=== PATIENT | male | born 1970 | race Caucasian/White ===

== ENCOUNTER 2016-07-02 03:38 | Emergency (ER) | payer OTHER ==
[~2016-07-02 03:38] MED LIST: CEFT2ADD IV; DOXY100T PO; HEPARIN LOCK FLUSH IV; PERC5TAB8 OR; saline lock flush IV
--- NOTE | 2016-07-02 04:47 | EDDOCDS ---
Nurse's Notes [facility] Name: Jerel Lainez Age: 46 yrs Sex: Male : 1970 Arrival Date: 07/02/2016 Time: 03:38 Bed I8 / 16 Private MD: Moose Diagnosis: Strain of other muscles, fascia and tendons at shoulder and upper arm level, right arm Presentation: 07/02 03:51 Presenting complaint: Patient states: right shoulder pain, states he injured shoulder nn1 at work. 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 States right shoulder hit fender of brick unloader tender. Injury occurred at approximately 1700. Suicide/Homicide risk assessment- the patient denies having any suicidal and/or homicidal ideations and does not present with any other emotional, behavioral or mental health complaints. 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 Transition of care: patient was not received from another setting of care. 03:51 Acuity: EARLINE Level 4 nn1 03:51 Method Of Arrival: Walkin/Carried/Asstd nn1 04:46 Adult Sepsis Screening: The patient does not have new or worsening altered mentation. af2 Patient's respiratory rate is less than 22. Systolic blood pressure is greater than 100. Patient has a qSOFA score of 0- Negative Sepsis Screen. Triage Assessment: 03:56 General: Appears in no apparent distress, Behavior is appropriate for age, cooperative. nn1 Pain: Location: anterior aspect of right shoulder and posterior aspect of right shoulder Pain currently is 8 out of 10 on a pain scale. HIV screening NA for this visit Offered previously. The patient is triaged at the bedside. See Assessment in Nurses Notes section of ED record. Respiratory: Airway is patent Respiratory effort is even, unlabored, Respiratory pattern is regular, symmetrical. Derm: Skin is pink, warm & dry. Musculoskeletal: cervical spine is non-tender. Circulation, motion, and sensation intact Capillary refill < 3 seconds Range of motion limited in right shoulder No deformity noted Swelling absent. Historical: - Allergies: PENICILLINS; Atropine; - Home Meds: 1. none - PMHx: GERD; - PSHx: Knee surgery- Right; finger surgery; Tonsillectomy; - Social history: Smoking status: Patient states was never smoker of tobacco. No barriers to communication noted, The patient speaks fluent Tuvaluan, Speaks appropriately for age. - Family history: Not pertinent. - : The pt / caregiver states he / she is not on anticoagulants. Home medication list is obtained from the patient. - Exposure Risk Screening:: None identified. Screenin:57 Screening information is obtained from the patient. Fall risk: No risks identified. nn1 Assistance ADL's: requires no assistance with activities of daily living. Abuse/DV Screen: The patient / caregiver reports he/she is: not in a situation that causes fear, pain or injury. Nutritional screening: No deficits noted. Advance Directives: Currently, there is a health care proxy, ismael Thayer, . home support is adequate. Assessment: 04:45 General: Appears in no apparent distress, comfortable, Behavior is appropriate for age, af2 cooperative. Awake, alert, oriented. Skin warm and dry. Moves all extremities. Respirations unlabored. No apparent distress. The patient / caregiver is instructed regarding the plan of care and ED course. Physical assessment to be completed by PA/FAIZAN. Vital Signs: 03:54 BP 173 / 84; Pulse 85; Resp 18; Temp 99.2(TE); Pulse Ox 95% on R/A; Weight 131.09 kg nn1 (R); Height 5 ft. 10 in. (177.80 cm); Pain 8/10; 03:54 Body Mass Index 41.47 (131.09 kg, 177.80 cm) nn1 Vitals: 03:54 Log In Time: July 02, 2016 at 03:38. nn1 ED Course: 03:40 Patient visited by oClten Aguilar Reg. pm4 03:40 Moose is Private Physician. pm4 03:40 Patient moved to Waiting pm4 03:53 Triage Initiated nn1 03:58 Patient moved to I8 / 16 nn1 04:03 Yash Bo DO is Attending Physician. cs11 04:03 Patient visited by Yash Bo DO. cs11 04:38 [facility] Payment Agreement was scanned into [employer] and attached to record. hs2 04:40 Patient name changed from Jerel\S\J\S\[place]\S\ to Jerel\S\Obey\S\[place]. EDMS 04:45 No IV's were initiated during this patient's visit. No procedures done that require af2 assistance. Sling applied to right arm. Patient with positive distal sensation and brisk distal capillary refill after application. 04:46 The patient / caregiver is instructed regarding the plan of care and ED course. Patient af2 has correct armband on for positive identification. Placed in gown. Order Results: There are currently no results for this order. Outcome: 04:29 Discharge ordered by Provider. cs11 04:46 Discharge Assessment: Patient awake, alert and oriented x 3. No cognitive and/or af2 functional deficits noted. Patient verbalized understanding of disposition instructions. patient administered narcotics - no. The following High Risk Discharge criteria are identified: None. Discharged to home ambulatory. Condition: stable. Discharge instructions given to patient, Instructed on discharge instructions, follow up and referral plans. Demonstrated understanding of instructions, Pt was receptive of discharge instructions/ teaching. No special radiology studies were completed. Property :Personal belongings accompany Pt. 04:47 Patient left the ED. af2 Signatures: Dispatcher [employer] EDMS Yash Bo, DO DO cs11 Rekha Perez RN RN af2 Travis Cloud RN RN nn1 Dora Barrios, Reg Reg hs2 Colten Aguilar, Reg Reg pm4 ANGELITAD
--- NOTE | 2016-07-02 04:47 | EDDOCDS ---
Physician Documentation [facility] Name: Jerel Lainez Age: 46 yrs Sex: Male : 1970 Arrival Date: 07/02/2016 Time: 03:38 Bed I8 / Private MD: Moose Disposition: 07/02/16 04:29 Discharged to Home/Self Care. Impression: Strain of other muscles, fascia and tendons at shoulder and upper arm level, right arm. - Condition is Stable. - Medication Reconciliation, Local Pharmacy Hours form. - Follow up: Private Physician; When: contact your employer for employee health referral. - Problem is new. - Symptoms are unchanged. - Notes: no work until evaluated by your employee health office. Historical: - Allergies: PENICILLINS; Atropine; - Home Meds: 1. none - PMHx: GERD; - PSHx: Knee surgery- Right; finger surgery; Tonsillectomy; - Social history: Smoking status: Patient states was never smoker of tobacco. No barriers to communication noted, The patient speaks fluent Marshallese, Speaks appropriately for age. - Family history: Not pertinent. - : The pt / caregiver states he / she is not on anticoagulants. Home medication list is obtained from the patient. - Exposure Risk Screening:: None identified. Vital Signs: 07/02 03:54 BP 173 / 84; Pulse 85; Resp 18; Temp 99.2(TE); Pulse Ox 95% on R/A; Weight 131.09 kg / nn1 289 lbs (R); Height 5 ft. 10 in. (177.80 cm); Pain 8/10; 03:54 Body Mass Index 41.47 (131.09 kg, 177.80 cm) nn1 MDM: 04:13 Shoulder, Complete Ordered. EDMS 04:29 Sling ordered. cs11 04:36 Financial registration complete. hs2 04:38 [facility] Payment Agreement was scanned into [employer] and attached to record. hs2 Signatures: Dispatcher [employer] EDMS Yash Bo DO DO cs11 Rekha Perez,RN RN af2 Travis Cloud,BARRERA RN nn1 Dora Barrios, Reg Reg hs2 The chart was reviewed and I authenticate all verbal orders and agree with the evaluation and treatment provided.Attachments: 04:38 [facility] Payment Agreement hs2 MTDD
--- NOTE | 2016-07-04 05:48 | EDDOCDS ---
Physician Documentation [facility] Name: Jerel Lainez Age: 46 yrs Sex: Male : 1970 Arrival Date: 07/02/2016 Time: 03:38 Bed I8 / Private MD: Moose Disposition: 07/02/16 04:29 Discharged to Home/Self Care. Impression: Strain of other muscles, fascia and tendons at shoulder and upper arm level, right arm. - Condition is Stable. - Medication Reconciliation, Local Pharmacy Hours form. - Follow up: Private Physician; When: contact your employer for employee health referral. - Problem is new. - Symptoms are unchanged. - Notes: no work until evaluated by your employee health office. Historical: - Allergies: PENICILLINS; Atropine; - Home Meds: 1. none - PMHx: GERD; - PSHx: Knee surgery- Right; finger surgery; Tonsillectomy; - Social history: Smoking status: Patient states was never smoker of tobacco. No barriers to communication noted, The patient speaks fluent Irish, Speaks appropriately for age. - Family history: Not pertinent. - : The pt / caregiver states he / she is not on anticoagulants. Home medication list is obtained from the patient. - Exposure Risk Screening:: None identified. Vital Signs: 07/02 03:54 BP 173 / 84; Pulse 85; Resp 18; Temp 99.2(TE); Pulse Ox 95% on R/A; Weight 131.09 kg / nn1 289 lbs (R); Height 5 ft. 10 in. (177.80 cm); Pain 8/10; 03:54 Body Mass Index 41.47 (131.09 kg, 177.80 cm) nn1 MDM: 04:13 Shoulder, Complete Ordered. EDMS 04:29 Sling ordered. cs11 04:36 Financial registration complete. hs2 04:38 [facility] Payment Agreement was scanned into [employer] and attached to record. hs2 08:44 T-Sheet-- Draft Copy was scanned into [employer] and attached to record. [facility] Signatures: Dispatcher [employer] EDMS Yash oB DO DO cs11 Rekha PerezRN RN af2 Travis Cloud RN RN nn1 Dora Barrios, Reg Reg hs2 Bernarda Joe [facility] The chart was reviewed and I authenticate all verbal orders and agree with the evaluation and treatment provided.Attachments: 04:38 [facility] Payment Agreement hs2 08:44 T-Sheet-- Draft Copy amor Chart Complete MTDD
--- NOTE | 2016-07-04 05:48 | EDDOCDS ---
Physician Documentation [facility] Name: Jerel Lainez Age: 46 yrs Sex: Male : 1970 Arrival Date: 07/02/2016 Time: 03:38 Bed I8 / Private MD: Moose Disposition: 07/02/16 04:29 Discharged to Home/Self Care. Impression: Strain of other muscles, fascia and tendons at shoulder and upper arm level, right arm. - Condition is Stable. - Medication Reconciliation, Local Pharmacy Hours form. - Follow up: Private Physician; When: contact your employer for employee health referral. - Problem is new. - Symptoms are unchanged. - Notes: no work until evaluated by your employee health office. Historical: - Allergies: PENICILLINS; Atropine; - Home Meds: 1. none - PMHx: GERD; - PSHx: Knee surgery- Right; finger surgery; Tonsillectomy; - Social history: Smoking status: Patient states was never smoker of tobacco. No barriers to communication noted, The patient speaks fluent Indian, Speaks appropriately for age. - Family history: Not pertinent. - : The pt / caregiver states he / she is not on anticoagulants. Home medication list is obtained from the patient. - Exposure Risk Screening:: None identified. Vital Signs: 07/02 03:54 BP 173 / 84; Pulse 85; Resp 18; Temp 99.2(TE); Pulse Ox 95% on R/A; Weight 131.09 kg / nn1 289 lbs (R); Height 5 ft. 10 in. (177.80 cm); Pain 8/10; 03:54 Body Mass Index 41.47 (131.09 kg, 177.80 cm) nn1 MDM: 04:13 Shoulder, Complete Ordered. EDMS 04:29 Sling ordered. cs11 04:36 Financial registration complete. hs2 04:38 [facility] Payment Agreement was scanned into [employer] and attached to record. hs2 08:44 T-Sheet-- Draft Copy was scanned into [employer] and attached to record. [facility] Signatures: Dispatcher [employer] EDMS Yash Bo DO DO cs11 Rekha PerezRN RN af2 Travis Cloud RN RN nn1 Dora Barrios, Reg Reg hs2 Bernarda Joe [facility] The chart was reviewed and I authenticate all verbal orders and agree with the evaluation and treatment provided.Attachments: 04:38 [facility] Payment Agreement hs2 08:44 T-Sheet-- Draft Copy amor Chart Complete MTDD
--- NOTE | 2016-07-04 05:48 | EDDOCDS ---
Nurse's Notes [facility] Name: Jerel Lainez Age: 46 yrs Sex: Male : 1970 Arrival Date: 07/02/2016 Time: 03:38 Bed I8 / 16 Private MD: Moose Diagnosis: Strain of other muscles, fascia and tendons at shoulder and upper arm level, right arm Presentation: 07/02 03:51 Presenting complaint: Patient states: right shoulder pain, states he injured shoulder nn1 at work. 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 States right shoulder hit fender of pig iron loader. Injury occurred at approximately 1700. Suicide/Homicide risk assessment- the patient denies having any suicidal and/or homicidal ideations and does not present with any other emotional, behavioral or mental health complaints. 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 Transition of care: patient was not received from another setting of care. 03:51 Acuity: EARLINE Level 4 nn1 03:51 Method Of Arrival: Walkin/Carried/Asstd nn1 04:46 Adult Sepsis Screening: The patient does not have new or worsening altered mentation. af2 Patient's respiratory rate is less than 22. Systolic blood pressure is greater than 100. Patient has a qSOFA score of 0- Negative Sepsis Screen. Triage Assessment: 03:56 General: Appears in no apparent distress, Behavior is appropriate for age, cooperative. nn1 Pain: Location: anterior aspect of right shoulder and posterior aspect of right shoulder Pain currently is 8 out of 10 on a pain scale. HIV screening NA for this visit Offered previously. The patient is triaged at the bedside. See Assessment in Nurses Notes section of ED record. Respiratory: Airway is patent Respiratory effort is even, unlabored, Respiratory pattern is regular, symmetrical. Derm: Skin is pink, warm & dry. Musculoskeletal: cervical spine is non-tender. Circulation, motion, and sensation intact Capillary refill < 3 seconds Range of motion limited in right shoulder No deformity noted Swelling absent. Historical: - Allergies: PENICILLINS; Atropine; - Home Meds: 1. none - PMHx: GERD; - PSHx: Knee surgery- Right; finger surgery; Tonsillectomy; - Social history: Smoking status: Patient states was never smoker of tobacco. No barriers to communication noted, The patient speaks fluent [place]inean, Speaks appropriately for age. - Family history: Not pertinent. - : The pt / caregiver states he / she is not on anticoagulants. Home medication list is obtained from the patient. - Exposure Risk Screening:: None identified. Screenin:57 Screening information is obtained from the patient. Fall risk: No risks identified. nn1 Assistance ADL's: requires no assistance with activities of daily living. Abuse/DV Screen: The patient / caregiver reports he/she is: not in a situation that causes fear, pain or injury. Nutritional screening: No deficits noted. Advance Directives: Currently, there is a health care proxy, ismael Thayer, . home support is adequate. Assessment: 04:45 General: Appears in no apparent distress, comfortable, Behavior is appropriate for age, af2 cooperative. Awake, alert, oriented. Skin warm and dry. Moves all extremities. Respirations unlabored. No apparent distress. The patient / caregiver is instructed regarding the plan of care and ED course. Physical assessment to be completed by PA/FAIZAN. Vital Signs: 03:54 BP 173 / 84; Pulse 85; Resp 18; Temp 99.2(TE); Pulse Ox 95% on R/A; Weight 131.09 kg nn1 (R); Height 5 ft. 10 in. (177.80 cm); Pain 8/10; 03:54 Body Mass Index 41.47 (131.09 kg, 177.80 cm) nn1 Vitals: 03:54 Log In Time: July 02, 2016 at 03:38. nn1 ED Course: 03:40 Patient visited by Colten Aguilar Reg. pm4 03:40 Moose is Private Physician. pm4 03:40 Patient moved to Waiting pm4 03:53 Triage Initiated nn1 03:58 Patient moved to I8 / 16 nn1 04:03 Yash Bo DO is Attending Physician. cs11 04:03 Patient visited by Yash Bo DO. cs11 04:38 [facility] Payment Agreement was scanned into [employer] and attached to record. hs2 04:40 Patient name changed from Jerel\S\J\S\[place]\S\ to Jerel\S\Obey\S\[place]. EDMS 04:45 No IV's were initiated during this patient's visit. No procedures done that require af2 assistance. Sling applied to right arm. Patient with positive distal sensation and brisk distal capillary refill after application. 04:46 The patient / caregiver is instructed regarding the plan of care and ED course. Patient af2 has correct armband on for positive identification. Placed in gown. 08:44 T-Sheet-- Draft Copy was scanned into [employer] and attached to record. [facility] Order Results: There are currently no results for this order. Outcome: 04:29 Discharge ordered by Provider. cs11 04:46 Discharge Assessment: Patient awake, alert and oriented x 3. No cognitive and/or af2 functional deficits noted. Patient verbalized understanding of disposition instructions. patient administered narcotics - no. The following High Risk Discharge criteria are identified: None. Discharged to home ambulatory. Condition: stable. Discharge instructions given to patient, Instructed on discharge instructions, follow up and referral plans. Demonstrated understanding of instructions, Pt was receptive of discharge instructions/ teaching. No special radiology studies were completed. Property :Personal belongings accompany Pt. 04:47 Patient left the ED. af2 Signatures: Dispatcher [employer] EDMS Yash Bo, DO DO cs11 Rekha Perez,RN RN af2 Travis Cloud RN RN nn1 Dora Barrios, Reg Reg hs2 Bernarda Joe Paul, Reg Reg pm4 Chart Complete MTDD
--- NOTE | 2016-07-04 08:29 | REP ---
Right shoulder three views: There is acromioclavicular osteoarthritis. The glenohumeral articulation is unremarkable. There is no fracture or dislocation. No calcifications or foreign bodies. Signed by Giacomo Castrejon MD 07/02/2016 08:41 A
== END 2016-07-02 04:47 | disposition home or self-care (01) ==
LOC: M ED 03:38
DX: S46.911A Strain of unspecified muscle, fascia and tendon at shoulder and upper arm level, right arm, initial encounter (principal); W18.40XA Slipping, tripping and stumbling without falling, unspecified, initial encounter; Y92.89 Other specified places as the place of occurrence of the external cause; Y93.89 Activity, other specified; Y99.0 Civilian activity done for income or pay; K21.9 Gastro-esophageal reflux disease without esophagitis; Z88.0 Allergy status to penicillin; Z88.8 Allergy status to other drugs, medicaments and biological substances

== ENCOUNTER → 2016-11-17 | Outpatient (CLI) | payer OTHER | LOC: M SLEEP 20:00 | PROVIDERS: ATTEND Nurse Practitioner Adult Health | DX: G47.33 Obstructive sleep apnea (adult) (pediatric) (principal) ==

== ENCOUNTER → 2016-12-15 | Outpatient (CLI) | payer OTHER ==
[~2016-12-15] MED LIST changes: +NORCOTAB PO; +VALI5TAB PO
--- NOTE | 2016-12-17 13:45 | SLEEPCENT ---
DATE OF PROCEDURE: 12/15/2016 ORDERED BY: ARTHUR Moreno Nocturnal polysomnography was performed for the titration of pressure therapy in this patient with obstructive sleep apnea syndrome, apnea hypopnea index of 20. For testing, a ResMed Quattro Air full face mask of medium size was used. 5 cm of water pressure were applied to the circuit and the lights were extinguished. 7 hours and 23 minutes of data were reviewed. There were 366 minutes of sleep identified. Sleep latency was mildly prolonged at 24 minutes. Rapid eye movement (REM) latency was normal at 83 minutes. Sleep architecture improved over the course of the study. There were 4 REM periods appreciated. Overall sleep efficiency was 83.8%. The patient's EKG showed a sinus rhythm with an average heart rate of 70 beats per minute. EEG showed normal waveforms for awake and sleep. Respiratory events prompted an increase in CPAP. Best sleep was seen at CPAP pressure of +8. There some limb activity appreciated. Only 1 train of 30 events. Limb movement arousal index was 7.2, up from the diagnostic night. IMPRESSION: Obstructive sleep apnea syndrome (G47.33). RECOMMENDATION: Nightly use of pressure therapy 7 cm of water.
== END ==
LOC: M SLEEP 19:50
PROVIDERS: ATTEND Nurse Practitioner Adult Health
DX: G47.33 Obstructive sleep apnea (adult) (pediatric) (principal)

== ENCOUNTER 2017-03-19 17:46 | Emergency (ER) | payer OTHER ==
[~2017-03-19] VITALS: Ht 177.8 cm; Wt 131.8 kg
[~2017-03-19 17:46] MED LIST changes: -NORCOTAB PO; -VALI5TAB PO
[2017-03-19] MEDS ORDERED: NS 1,000 ML IV ONE (18:30)
[2017-03-19] MEDS ORDERED: ONDANSETRON 4MG/2ML VIAL (J2405) IV PRN (18:30)
[2017-03-19] MEDS ORDERED: KETOROLAC 30 MG/ML VIAL (J1885) IV ONE (18:30)
[2017-03-19 18:31] LABS: BASO # 0.1 10^3/uL (0.0-0.2); BASO % 0.7 % (0.0-1.0); EOS # 0.3 10^3/uL (0.0-0.50); EOS % 2.5 % (0.0-3.0); IMMATURE GRANULOCYTE % 0.5 % (0-0); LYMPH # 3.2 10^3/uL (1.5-4.5); LYMPH % 29.5 % (24.0-44.0); MEAN CORPUSCULAR VOLUME 97.3 fl (80.0-96.0); MONO # 1.1 10^3/uL (0.0-0.8); MONO % 10.5 % (0.0-5.0); NEUTROPHILS % 56.3 % (36.0-66.0); PLATELET COUNT, AUTOMATED 243 10^3/uL (150-450); RED CELL DISTRIBUTION WIDTH 12.4 % (11.5-14.5); WHITE BLOOD COUNT 10.7 10^3/uL (4.0-10.0)
[2017-03-19 19:00] LABS: ALBUMIN 3.9 GM/DL (3.2-5.2); ALBUMIN/GLOBULIN RATIO 1.08 (1.00-1.93); ALKALINE PHOSPHATASE 63 U/L (45-117); ALT/SGPT 73 U/L (12-78); ANION GAP 8 MEQ/L (8-16); AST/SGOT 32 U/L (15-37); BILIRUBIN,DIRECT 0.1 MG/DL (0.0-0.2); BILIRUBIN,TOTAL 0.3 MG/DL (0.2-1.0); BLOOD UREA NITROGEN 20 MG/DL (7-18); CALCIUM LEVEL 9.2 MG/DL (8.5-10.1); CARBON DIOXIDE LEVEL 27 MEQ/L (21-32); CHLORIDE LEVEL 104 MEQ/L (98-107); CREATININE FOR GFR 1.26 MG/DL (0.70-1.30); GLOMERULAR FILTRATION RATE > 60.0 (>60); GLUCOSE, FASTING 101 MG/DL (70-105); POTASSIUM SERUM 4.3 MEQ/L (3.5-5.1); SODIUM LEVEL 139 MEQ/L (136-145); TOTAL PROTEIN 7.5 GM/DL (6.4-8.2)
--- NOTE | 2017-03-19 19:20 | REPUSA ---
CT of the abdomen and pelvis without contrast Clinical statement: Pain. Technique: Multiple axial CT images were obtained from the base of the lungs to the floor of the pelv is utilizing 5 mm axial slices without administration of contrast. Coronal and sagittal reconstructio ns were also obtained. Comparison: 04/16/2014. Findings: Chest: The visualized lung bases are clear. Abdomen: The kidneys are normal in size bilaterally. There is a 2.5 cm simple cyst in the inferior le ft kidney. There is no evidence of hydronephrosis or nephrolithiasis. The liver, spleen, pancreas, ga llbladder and adrenal glands are unremarkable. The aorta demonstrates normal caliber and contour. The re is no abdominal lymphadenopathy or ascites. Pelvis: The bowel is unremarkable, with no obstructive or inflammatory changes. The appendix is selina l. There is mild sigmoid diverticulosis. There is a small umbilical hernia containing only omental fa t. The urinary bladder is within normal limits. There is no pelvic lymphadenopathy or ascites. The ot her pelvic structures appear unremarkable. Bones: There are no suspicious osseous abnormalities seen. Impression: 1. No obstructive or inflammatory bowel changes. Mild sigmoid diverticulosis. 2. Umbilical hernia containing only omental fat. 3. No evidence of hydronephrosis or nephrolithiasis. Simple left renal cyst.
[2017-03-19] MEDS ORDERED: VALI5TAB PO (20:38)
[2017-03-19] MEDS ORDERED: NORCOTAB PO (20:38)
[2017-03-19 21:07] VITALS: BP 154/72
== END 2017-03-19 21:11 | disposition home or self-care (01) ==
LOC: M ED 17:46
DX: S39.011A Strain of muscle, fascia and tendon of abdomen, initial encounter (principal); X58.XXXA Exposure to other specified factors, initial encounter; Y92.89 Other specified places as the place of occurrence of the external cause; Y93.89 Activity, other specified; Y99.9 Unspecified external cause status
CPT/HCPCS: 74176; 80048; 80076; 81001; 85025; 87086; 96374; 96375; 99283; J1885; J2405; J3360

== ENCOUNTER 2018-05-08 20:20 | Emergency (ER) | payer OTHER ==
[2018-05-08] MEDS: CLINDAMYCIN 150 MG CAP PO (21:55)
[2018-05-08] MEDS: LIDOCAINE 1% MDV 20ML VIAL IM (21:59)
== END 2018-05-08 22:24 | disposition home or self-care (01) ==
LOC: M ED 20:20
DX: L08.9 Local infection of the skin and subcutaneous tissue, unspecified (principal); I10 Essential (primary) hypertension; Z88.0 Allergy status to penicillin; Z88.8 Allergy status to other drugs, medicaments and biological substances
CPT/HCPCS: 87186

== ENCOUNTER → 2019-05-14 | Outpatient (REF) | payer OTHER ==
[~2019-05-14] MED LIST changes: +CLEO300C2 PO; +HYDR-3715 PO; +VALI5TAB PO
[2019-05-14 13:30] LABS: MONO SCRN NEGATIVE (NEGATIVE)
[2019-05-16 00:06] LABS: Lyme Disease IgG/IgM Antibodie <0.91 ISR (0.00-0.90); Lyme Disease IgM Ab Quantitati <0.80 index (0.00-0.79)
== END ==
LOC: M LAB REF 12:43
PROVIDERS: ATTEND Registered Nurse
DX: R53.81 Other malaise (principal)

== ENCOUNTER 2019-06-25 10:46 | Day surgery (SDC) | payer OTHER ==
[~2019-06-25] VITALS: Ht 177.8 cm; Wt 130.2 kg
[~2019-06-25 10:46] MED LIST changes: +NS 1,000 ML IV ONE; +propofoL 200 MG/20 ML VIAL As Ordered ONE
[2019-06-25] MEDS ORDERED: LIDOCAINE 2% INJ 100 MG/5 ML SDV (FOR ANES.) As Ordered ONE (12:32)
[2019-06-25] MEDS ORDERED: propofoL 200 MG/20 ML VIAL As Ordered ONE (12:32)
--- NOTE | 2019-06-25 13:15 | ROOR ---
Patient Name: Jerel Lainez Procedure Date: 06/25/2019 12:42 PM Date of : 1970 Age: 49 Room: [facility] Gender: Male Note Status: Finalized Procedure: Total Colonoscopy to Cecum Indications: Screening for colorectal malignant neoplasm Providers: Ari Galaviz MD Referring MD: ZAINAB VELASQUEZ JR, MD Requesting Provider: Medicines: Monitored Anesthesia Care Complications: No immediate complications. Procedure: Pre-Anesthesia Assessment: - The heart rate, respiratory rate, oxygen saturations, blood pressure, adequacy of pulmonary ventilation, and response to care were monitored throughout the procedure. The Colonoscope was introduced through the anus and advanced to the cecum, identified by appendiceal orifice and ileocecal valve. The colonoscopy was performed without difficulty. The patient tolerated the procedure well. The quality of the bowel preparation was excellent. Findings: The perianal and digital rectal examinations were normal. Non-bleeding internal hemorrhoids were found during retroflexion. The hemorrhoids were small and Grade I (internal hemorrhoids that do not prolapse). Scattered small-mouthed diverticula were found in the recto-sigmoid colon, sigmoid colon and descending colon. The exam was otherwise without abnormality on direct and retroflexion views. Impression: - Non-bleeding internal hemorrhoids. - Diverticulosis in the recto-sigmoid colon, in the sigmoid colon and in the descending colon. - The examination was otherwise normal on direct and retroflexion views. - No specimens collected. - The exam was otherwise normal to the cecum. Recommendation: - Patient has a contact number available for emergencies. The signs and symptoms of potential delayed complications were discussed with the patient. Return to normal activities tomorrow. Written discharge instructions were provided to the patient. - High fiber diet. - Discharge patient to home. - Continue present medications. - Repeat colonoscopy in 10 years for screening purposes. - Return to referring physician. - The findings and recommendations were discussed with the patient's family. Ari Galaviz MD Ari Galaviz MD 06/25/2019 1:14:40 PM Electronically signed by Ari Galaviz MD Number of Addenda: 0 Note Initiated On: 06/25/2019 12:42 PM Estimated Blood Loss: Estimated blood loss: none.
[2019-06-25 13:35] VITALS: BP 169/96
== END 2019-06-25 13:55 | disposition home or self-care (01) ==
LOC: M OPP 10:46
PROVIDERS: ATTEND Internal Medicine Gastroenterology
DX: Z12.11 Encounter for screening for malignant neoplasm of colon (principal); K64.0 First degree hemorrhoids; K57.30 Diverticulosis of large intestine without perforation or abscess without bleeding; K21.9 Gastro-esophageal reflux disease without esophagitis; Z88.0 Allergy status to penicillin; Z88.8 Allergy status to other drugs, medicaments and biological substances

== ENCOUNTER → 2019-09-30 | Outpatient (REF) | payer OTHER ==
[~2019-09-30] MED LIST changes: -NS 1,000 ML IV ONE; -propofoL 200 MG/20 ML VIAL As Ordered ONE
[2019-09-30 17:41] LABS: APPEARANCE, URINE CLEAR (CLEAR); BACTERIA, URINE AUTO NEGATIVE (NEGATIVE); BILIRUBIN, URINE AUTO NEGATIVE (NEGATIVE); BLOOD, URINE BLOOD NEGATIVE (NEGATIVE); COLOR, URINE YELLOW (YELLOW); GLUCOSE, URINE (UA) AUTO NEGATIVE (NEGATIVE); KETONE, URINE AUTO NEGATIVE (NEGATIVE); LEUKOCYTE ESTERASE, URINE AUTO NEGATIVE (NEGATIVE); MUCUS, URINE SMALL (NEGATIVE); NITRITE, URINE AUTO NEGATIVE (NEGATIVE); PROTEIN, URINE AUTO NEGATIVE (NEGATIVE); RBC, URINE AUTO 0 /HPF (0-3); SPECIFIC GRAVITY URINE AUTO 1.024 (1.002-1.035); SQUAMOUS EPITHELIAL CELL UR AU 0 /HPF (0-6); UROBILINOGEN, URINE AUTO 0.2 mg/dL (0.0-2.0); WBC, URINE AUTO 1 /HPF (0-3)
== END ==
LOC: M SMT 16:55
PROVIDERS: ATTEND Nurse Practitioner Women's Health
DX: R39.15 Urgency of urination (principal)

== ENCOUNTER → 2023-09-21 | Outpatient (REF) | payer OTHER | LOC: M LAB REF 13:03 | PROVIDERS: ATTEND Internal Medicine | DX: N52.9 Male erectile dysfunction, unspecified (principal); R68.82 Decreased libido ==

== ENCOUNTER → 2023-10-27 | Outpatient (REF) | payer OTHER | LOC: M LAB REF 13:02 | PROVIDERS: ATTEND Internal Medicine | DX: E29.1 Testicular hypofunction (principal) ==

== ENCOUNTER → 2024-01-12 | Outpatient (REF) | payer OTHER ==
[2024-01-12 17:56] LABS: PERCENT SATURATION 52.3 % (19.7-50.0)
[2024-01-12 17:58] LABS: FERRITIN 172.3 NG/ML (10.5-307.3)
== END ==
LOC: M LAB REF 16:21
PROVIDERS: ATTEND Internal Medicine
DX: Z01.818 Encounter for other preprocedural examination (principal)

== ENCOUNTER → 2024-03-18 | Outpatient (REF) | payer OTHER | LOC: M LAB REF 12:34 | PROVIDERS: ATTEND Internal Medicine | DX: E29.1 Testicular hypofunction (principal) ==

== ENCOUNTER → 2024-05-10 | Outpatient (REF) | payer OTHER | LOC: M LAB REF 12:11 | PROVIDERS: ATTEND Internal Medicine | DX: E29.1 Testicular hypofunction (principal) ==

== ENCOUNTER → 2024-09-20 | Outpatient (REF) | payer OTHER | LOC: M LAB REF 12:29 | PROVIDERS: ATTEND Internal Medicine | DX: E29.1 Testicular hypofunction (principal) ==

== ENCOUNTER → 2025-01-13 | Outpatient (REF) | payer OTHER ==
[2025-01-13 19:10] LABS: IRON (FE) 89.0 UG/DL (65-175); PERCENT SATURATION 28.4 % (19.7-50.0)
== END ==
LOC: M LAB REF 18:18
PROVIDERS: ATTEND Internal Medicine
DX: Z01.818 Encounter for other preprocedural examination (principal); M25.569 Pain in unspecified knee

== ENCOUNTER → 2025-05-28 | Outpatient (REF) | payer OTHER | LOC: M LAB REF 11:59 | PROVIDERS: ATTEND Internal Medicine | DX: E29.1 Testicular hypofunction (principal) ==